=== PATIENT | female | born 1970 | race African-American/Black ===

== ENCOUNTER 2020-08-21 19:45 | Emergency (ER) | payer MEDICARE, OTHER ==
[~2020-08-21 19:45] MED LIST: ATARAX25 MG PO; CENTRUM ADULTS1 EACH PO; ELIQUIS5 M1 PO; ELIQUIS5 MG PO; HCTZ25 MG PO; K-DUR20 MEQ PO; LASIX40 MG PO; LISINOPRIL-HCT1 EAC2 PO; NAPROXEN500 MG PO; NEURONTIN300 MG PO; NORCO 5/3251 EACH PO; PERCOCET 5-3251 EACH PO; SEROQUEL 100MG100 MG PO; TOPROL XL 50 MG50 MG PO; TUMS200 MG PO; VIBRAMYCIN100 M1 PO; ZOLOFT100 MG PO
[2020-08-21 20:19] LABS: BASOPHIL 0.4 % (0-2); EOSINOPHIL 2.4 % (0-5); HCT 37.4 % (37.0-47.0); HGB 11.8 g/dl (12.5-16.0); MCH 26.2 pg (25.0-31.0); MCHC 31.6 g/dL (32.0-36.0); MCV 82.9 fL (78.0-100.0); MONOCYTE 9.9 % (0-12); NEUTROPHIL 48.1 % (41-80); NRBC 0; PLT 469 K/uL (150-400); RBC 4.51 M/uL (4.20-5.40); RDW 15.6 % (11.5-14.0); WBC 9.2 K/uL (4.0-10.5)
[2020-08-21 20:49] LABS: CREATININE 0.95 mg/dL (0.51-0.95)
[2020-08-21 20:50] LABS: ALBUMIN 3.4 g/dL (3.4-5.0); BILIRUBIN - TOTAL 0.2 mg/dL (0.2-1.0); GLOBULIN (CALCULATION) 5.3 g/dL; POTASSIUM 3.3 mmol/L (3.5-5.1); PRO-BNP 25 pg/mL (<125); TOTAL PROTEIN 8.7 g/dL (6.4-8.2)
== END 2020-08-21 23:37 | disposition home or self-care (01) ==
LOC: FER 19:45
PROVIDERS: Emergency Medicine
DX: R60.0 Localized edema (principal); E87.6 Hypokalemia; I10 Essential (primary) hypertension; Z88.5 Allergy status to narcotic agent; Z88.6 Allergy status to analgesic agent; Z88.8 Allergy status to other drugs, medicaments and biological substances; Z79.899 Other long term (current) drug therapy
CPT/HCPCS: 36415; 71045; 80053; 83735; 83880; 84443; 84484; 85025; 93005

== ENCOUNTER 2021-08-21 18:18 | Emergency (ER) | payer MEDICARE, OTHER | END 2021-08-21 20:01 | disposition left against medical advice (07) | LOC: FER 18:18 | DX: M62.830 Muscle spasm of back (principal); M62.838 Other muscle spasm; Z88.6 Allergy status to analgesic agent; Z53.21 Procedure and treatment not carried out due to patient leaving prior to being seen by health care provider ==